=== PATIENT | male | born 1990 | race African-American/Black ===

== ENCOUNTER 2017-02-17 23:11 | Emergency (ER) | payer SELFPAY | END 2017-02-18 01:28 | disposition home or self-care (01) | LOC: FER 23:11 | DX: M65.351 Trigger finger, right little finger (principal); M65.341 Trigger finger, right ring finger; Z88.0 Allergy status to penicillin; Z88.5 Allergy status to narcotic agent | CPT/HCPCS: 73130; 99283 ==